=== PATIENT | male | born 1995 | race Caucasian/White ===

== ENCOUNTER 2022-06-18 10:00 | Emergency (ER) | payer OTHER, SELFPAY ==
--- NOTE | 2022-06-18 10:11 | ED.GENADULT ---
HPI - General Adult General Chief complaint: Ear Stated complaint: Lt Ear Irritation Time Seen by Provider: 06/18/22 10:12 Source: patient Mode of arrival: ambulatory Limitations: no limitations History of Present Illness HPI narrative: 27-year-old male patient presents to the [facility] complaints of left ear pain the past couple days. Patient states earlier in week did have a sore throat stuffy nose low-grade fever that has since resolved. Patient declines any other symptoms except for the left-sided ear pain. Patient states it feels like he is underwater feels like something is in his ear. Related Data Allergies Allergy/AdvReac Type Severity Reaction Status Date / Time No Known Allergies Allergy Verified 06/18/22 10:13 Review of Systems Review of Systems: CONSTITUTIONAL: Denies fever, chills, or sweats. EYES: Denies visual changes, redness, or discharge. ENT: Denies rhinorrhea, congestion, sore throat, Positive left otalgia. CARDIOVASCULAR: Denies chest pain, palpitations, or edema. RESPIRATORY: Denies cough or dyspnea. GASTROINTESTINAL: Denies abdominal pain, nausea, vomiting, or diarrhea. GENITOURINARY: Denies dysuria or hematuria. SKIN: Denies rash or itching. MUSCULOSKELETAL: Denies back pain, joint pain, or myalgia. NEUROLOGIC: Denies headache, numbness, or weakness. PSYCHIATRIC: Denies anxiety or depression. [facility] Past Medical History Medical History (Updated 06/18/22 @ 10:23 by CANDIDO Crews) No significant past medical history Comments At the time of my signature I agree with nursing past medical history, surgical, social, and family history. There is no relevant family history pertinent to the presenting complaint. Exam Narrative: GENERAL: Well-appearing, well-nourished, and in no acute distress. HEAD: Normocephalic, atraumatic. EYES: PERRLA and EOMI. ENT: Nares clear, no rhinorrhea or epistaxis. Mucous membranes moist. left canal does have some erythema noted to over the TM but does not appear that it is behind the TM. No active drainage noted. NECK: Supple. No lymphadenopathy CHEST: Clear to auscultation. No respiratory distress. HEART: Regular rate and rhythm. No murmur heard. Normal peripheral pulses. ABDOMEN: Soft, nontender, nondistended, normal active bowel sounds. EXTREMITIES: Normal range of motion. No edema. SKIN: Warm, dry, no rash. NEURO: No focal deficits. Alert and oriented x3. Course Course Level of Care: Express Care Visit Vital Signs Vital signs: Vital Signs Temperature 36.1 C L 06/18/22 10:15 Pulse Rate 88 06/18/22 10:15 Respiratory Rate 16 06/18/22 10:15 Blood Pressure 161/88 H 06/18/22 10:15 Pulse Oximetry 100 06/18/22 10:15 Oxygen Delivery Room Air 06/18/22 10:15 Temperature 36.1 C L 06/18/22 10:15 Pulse Rate 88 06/18/22 10:15 Respiratory Rate 16 06/18/22 10:15 Blood Pressure 161/88 H 06/18/22 10:15 Pulse Oximetry 100 06/18/22 10:15 Oxygen Delivery Room Air 06/18/22 10:15 Vital signs reviewed. The patient has been informed that they may have pre-hypertension or Hypertension based on a BP reading in the department. I recommend that the patient call the primary care provider listed on their discharge instructions or a physician of their choice this week to arrange follow up for further evaluation of possible pre-hypertension or Hypertension Medical Decision Making MDM Narrative Medical decision making narrative: Discussed with patient we will discharge him home with the antibiotic ear drop for the otitis externa infection to the left ear. Patient may take Tylenol and ibuprofen and he antihistamine as needed. Discussed with patient if he continues to have worsening symptoms despite being on the antibiotic ear drops I would encourage him to come back for further evaluation or see his primary doctor. Differential Diagnosis Differential Diagnosis: Differential diagnosis: Otitis media, otitis externa, perforated TM, i
[2022-06-18 10:15] VITALS: BP 161/88; PULSE 88; RESP 16; TEMP 36.1; O2SAT 100
== END 2022-06-18 10:23 | disposition home or self-care (01) ==
PROVIDERS: Emergency Provider Nurse Practitioner Family
DX: H60.502 Unspecified acute noninfective otitis externa, left ear (principal)
CPT/HCPCS: 99213; G0463